=== PATIENT | male | born 1990 | race Two or more races ===

== ENCOUNTER 2018-02-03 23:17 | Emergency (ER) | payer SELFPAY ==
[~2018-02-03] VITALS: Ht 172.7 cm; Wt 79.4 kg
[2018-02-03 23:49] VITALS: BP 134/87
== END 2018-02-04 00:07 | disposition left against medical advice (07) ==
LOC: ER 23:19
DX: S01.511A Laceration without foreign body of lip, initial encounter (principal); Z53.21 Procedure and treatment not carried out due to patient leaving prior to being seen by health care provider; V43.52XA Car driver injured in collision with other type car in traffic accident, initial encounter; Y93.89 Activity, other specified; Y99.8 Other external cause status; Y92.410 Unspecified street and highway as the place of occurrence of the external cause